=== PATIENT | female | born 1975 | race Caucasian/White ===

== ENCOUNTER 2019-07-11 13:55 | Outpatient (CLI) | payer OTHER, SELFPAY ==
[2019-07-11 14:41] LABS: Beta HCG Quantitative < 2.39 mIU/ML
== END 2019-07-11 13:56 | disposition home or self-care (01) ==
LOC: ANHLAB 13:57
PROVIDERS: Visit Provider Obstetrics & Gynecology
DX: Z30.430 Encounter for insertion of intrauterine contraceptive device (principal)
CPT/HCPCS: 36415; 84702

== ENCOUNTER → 2021-02-04 11:13 | Outpatient (CLI) | payer OTHER, SELFPAY ==
--- NOTE | ~2021-02-04 | US_ITS ---
EXAMINATION: US pelvic complete w TV DATE: 02/04/2021 11:55 INDICATION: Abdominal and pelvic swelling. Palpable pelvic lump. Comparison:No prior studies for comparison. TECHNIQUE: Multiple transabdominal and endovaginal sonographic images of the pelvis performed. FINDINGS: The uterus measures 10.3 x 5.1 x 6.3 cm. On the left aspect of the uterine fundus there is a 5.8 cm uterine fibroid. There is an additional 1 cm fibroid at the fundus. IUD present in the endometrium. The endometrial complex measures 7 mm. The right ovary measures 2.5 x 1.9 x 2.6 cm and the left ovary measures 3 x 1.9 x 2.7 cm. There are small follicles in each ovary. Normal doppler signal in both ovaries. There is no free fluid in the pelvis. There are no abnormal masses seen on either side. IMPRESSION: 1. Enlarged fibroid uterus. IUD in expected position. Reviewed, dictated and finalized at location A.
== END ==
PROVIDERS: Visit Provider Obstetrics & Gynecology
DX: D25.9 Leiomyoma of uterus, unspecified (principal); Z97.5 Presence of (intrauterine) contraceptive device
CPT/HCPCS: 76830; 76856

== ENCOUNTER 2022-02-10 14:59 | Outpatient (CLI) | payer OTHER, SELFPAY ==
[2022-02-10 16:00] LABS: Alanine Aminotransferase 17 U/L (6-35); Albumin Level 4.5 g/dL (3.5-5.1); Alkaline Phosphatase 49 U/L (38-126); Anion Gap 12 mmol/L (8-16); Aspartate Amino Transferase 24 U/L (14-36); Bilirubin,Total 0.4 mg/dL (0.2-1.3); Blood Urea Nitrogen 15 mg/dL (7-17); Calcium 9.8 mg/dL (8.4-10.2); Carbon Dioxide 30 mmol/L (22-30); Chloride 98 mmol/L (98-107); Cholesterol 189 mg/dL (0-200); Estimated Glomerular Filt Rate 60; Glucose 93 mg/dL (65-110); HDL Direct 61 mg/dL; Potassium 4.4 mmol/L (3.4-5.0); Sodium 140 mmol/L (137-145); Triglycerides 113 mg/dL (<150)
[2022-02-10 16:10] LABS: LDL Cholesterol Direct 82 mg/dL
[2022-02-10 16:24] LABS: Vitamin D 25 Hydroxy 79.5 ng/mL
== END 2022-02-10 15:00 | disposition home or self-care (01) ==
LOC: ANHLAB 15:00
PROVIDERS: Visit Provider Obstetrics & Gynecology
DX: Z00.00 Encounter for general adult medical examination without abnormal findings (principal)
CPT/HCPCS: 36415; 80053; 80061; 82306; 84443

== ENCOUNTER 2022-02-12 11:47 | Outpatient (CLI) | payer OTHER, SELFPAY ==
[2022-02-12 11:58] LABS: Basophils Absolute Auto 0.1 K/mm3 (0.0-0.1); Basophils Percent Auto 0.9 % (0.2-1.2); Eosinophils Absolute Auto 0.1 K/mm3 (0-0.3); Eosinophils Percent Auto 1.5 % (0-4.4); Hematocrit 43.3 % (37.0-47.0); Hemoglobin 14.5 g/dL (12.0-15.0); Immature Granulocyte Absolute 0.02 K/mm3 (0.00-0.031); Immature Granulocyte Percent A 0.3 % (0-0.5); Lymphocytes Absolute Auto 2.07 K/mm3 (0.9-3.2); Lymphocytes Percent Auto 26.1 % (18.3-44.2); Mean Corpuscular HGB Conc 33.5 g/dl (32-36); Mean Corpuscular Hemoglobin 31.7 pg (26-34); Mean Corpuscular Volume 94.5 fl (80-100); Mean Platelet Volume 9.7 fl (7.4-10.4); Monocytes Absolute Auto 0.7 K/mm3 (0.1-0.6); Monocytes Percent Auto 8.8 % (2.6-8.5); Neutrophils Percent Auto 62.4 % (45.5-73.1); Platelet Count Result 372 k/mm3 (150-375); Red Blood Count 4.58 M/mm3 (4.2-5.4); Red Cell Distribution Width 12.2 % (11.5-14.5); White Blood Count 7.9 K/mm3 (4.5-10.0)
== END 2022-02-12 11:48 | disposition home or self-care (01) ==
LOC: ANHLAB 11:49
PROVIDERS: Visit Provider Obstetrics & Gynecology
DX: Z00.00 Encounter for general adult medical examination without abnormal findings (principal)
CPT/HCPCS: 36415; 85025

== ENCOUNTER 2022-02-15 12:52 | Outpatient (CLI) | payer OTHER, SELFPAY ==
--- NOTE | ~2022-02-15 | US_ITS ---
EXAMINATION: US pelvic complete w TV DATE: 02/15/2022 14:14 INDICATION: Uterine fibroids. Comparison:Ultrasound dated 02/04/2021 TECHNIQUE: Multiple transabdominal and endovaginal sonographic images of the pelvis performed. FINDINGS: The uterus measures 10.5 x 4.7 x 6.8 cm. There is a uterine fibroid to the left of the uter us measuring 5.7 x 5.3 x 4.9 cm without significant change from prior study allowing for technique. T he endometrial complex measures 7 mm. The right ovary measures 4.4 x 2.8 x 2.8 cm. There are 2 cysts of the right ovary, largest measuring 1.7 cm. The left ovary is not visualized.. There is no free fluid in the pelvis. There are no abnormal masses seen on either side. IMPRESSION: 1. Enlarged uterus containing a 5.7 cm fibroid which appear stable. 2: Right ovarian cysts, largest measuring 1.7 cm. Reviewed, dictated and finalized at location A.
== END 2022-02-15 12:53 | disposition home or self-care (01) ==
PROVIDERS: Visit Provider Obstetrics & Gynecology
DX: D25.9 Leiomyoma of uterus, unspecified (principal); N85.2 Hypertrophy of uterus; N83.201 Unspecified ovarian cyst, right side
CPT/HCPCS: 76830; 76856

== ENCOUNTER → 2023-03-07 11:40 | Outpatient (CLI) | payer OTHER, SELFPAY ==
--- NOTE | ~2023-03-07 | US_ITS ---
EXAMINATION: US pelvic complete w TV DATE: 03/07/2023 12:01 INDICATION: Missing IUD strings. Comparison:Ultrasound dated 02/15/2022 TECHNIQUE: Multiple transabdominal and endovaginal sonographic images of the pelvis performed. FINDINGS: The uterus measures 9.7 x 5.2 x 6.1 cm. There is an IUD in the endometrium. There are uteri ne fibroids, largest measuring 5.6 cm. The endometrial complex measures 6 mm. The right ovary measures 3.3 x 2.1 x 2.5 cm with follicular changes. Left ovary is not visualized. There is no free fluid in the pelvis. There are no abnormal masses seen on either side. IMPRESSION: 1. Enlarged fibroid uterus, largest discrete fibroid measuring 5.6 cm. 2: IUD present in the endometrium. Reviewed, dictated and finalized at location B.
== END ==
PROVIDERS: PCP Obstetrics & Gynecology; Visit Provider Obstetrics & Gynecology
DX: Z30.431 Encounter for routine checking of intrauterine contraceptive device (principal); D25.9 Leiomyoma of uterus, unspecified
CPT/HCPCS: 76830; 76856

== ENCOUNTER 2024-03-29 13:46 | Outpatient (CLI) | payer OTHER, SELFPAY ==
--- NOTE | ~2024-03-29 | US_ITS ---
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 COMPARISON: 03/07/2023. FINDINGS: UTERUS: 8.5 x 5.0 x 5.6 cm. The uterus is anteverted and anteflexed. The endometrial complex measures 4.4 mm. Intrauterine device within the endometrial complex Multiple fibroids are redemonstrated within the uterus. The largest is subserosal, to the left of midline measuring 5.0 x 4.9 x 5.2 cm. RIGHT OVARY: The right ovary is unremarkable in echogenicity and size measuring 1.7 x 1.7 x 1.9 cm. Arterial and venous flow are identified. LEFT OVARY: The left ovary is unremarkable in echogenicity and size measuring 3.0 x 2.2 x 2.7 cm Both arterial and venous flow are identified. Follicles detected bilaterally. No free fluid is identified within the pelvis. IMPRESSION: Enlarged fibroid uterus. Given changes in positioning and technique, the largest fibroid, to the left of midline is unchanged from prior. IUD in good position. Reviewed, dictated and finalized at location A. [employer] IMPRESSION: Enlarged fibroid uterus. Given changes in positioning and technique, the larges t fibroid, to the left of midline is unchanged from prior. IUD in good position.
== END 2024-03-29 13:47 | disposition home or self-care (01) ==
LOC: MICIMG 13:46
PROVIDERS: PCP Obstetrics & Gynecology; Visit Provider Obstetrics & Gynecology
DX: D25.9 Leiomyoma of uterus, unspecified (principal); Z97.5 Presence of (intrauterine) contraceptive device
CPT/HCPCS: 76830; 76856